=== PATIENT | male | born 1990 | race Caucasian/White ===

== ENCOUNTER → 2019-08-22 | Outpatient (CLI) | payer OTHER ==
[~2019-08-22] MED LIST: ALBIPROI INH; ALBU.083IS; ASCO500; AZIT500 PO; DOXY100 PO; ROBITUSSIN
== END | disposition home or self-care (01) ==
LOC: LAB EV 16:00 → LAB SHORT 16:00
DX: J22 Unspecified acute lower respiratory infection (principal)
CPT/HCPCS: U0002